=== PATIENT | female | born 1965 | race Two or more races ===

== ENCOUNTER 2018-02-14 11:02 | Outpatient (CLI) | payer OTHER | END 2018-02-14 11:18 | disposition home or self-care (01) | LOC: RAD 501 11:02 | DX: I10 Essential (primary) hypertension (principal); E11.9 Type 2 diabetes mellitus without complications; M54.5 Low back pain; M54.2 Cervicalgia ==

== ENCOUNTER 2023-05-09 18:29 | Emergency (ER) | payer OTHER ==
[~2023-05-09] VITALS: Ht 154.9 cm; Wt 66.7 kg
[2023-05-09] MEDS ORDERED: TRULICITY0.75 MG/0. SUBCUTANEO (18:52)
[2023-05-09] MEDS ORDERED: JARDIANCE10 MG PO (18:53)
[2023-05-09] MEDS ORDERED: COZAAR50 MG PO (18:53)
[2023-05-09] MEDS ORDERED: VASOTEC2.5 MG PO (18:53)
[2023-05-09] MEDS ORDERED: AMBIEN10 MG PO (18:54)
[2023-05-09] MEDS ORDERED: SIMVASTATIN5 MG PO (18:54)
[2023-05-09] MEDS ORDERED: KAPSPARGO SPRIN25 MG PO (18:54)
[2023-05-09] MEDS ORDERED: MECLIZINE HCL 25 MG TABLET PO STA (19:43)
[2023-05-09] MEDS ORDERED: NEOMYCIN/POLYMYXIN B/HYDROCORT 20 DR/ML BOTTLE OT STA (19:43)
== END 2023-05-09 19:58 | disposition home or self-care (01) ==
LOC: ER 18:29
DX: H81.11 Benign paroxysmal vertigo, right ear (principal); Z88.8 Allergy status to other drugs, medicaments and biological substances

== ENCOUNTER 2023-06-15 21:25 | Emergency (ER) | payer OTHER ==
[~2023-06-15] VITALS: Ht 154.9 cm; Wt 68.0 kg
[~2023-06-15 21:25] MED LIST: AMBIEN10 MG PO; COZAAR50 MG PO; JARDIANCE10 MG PO; KAPSPARGO SPRIN25 MG PO; SIMVASTATIN5 MG PO; TRULICITY0.75 MG/0. SUBCUTANEO; VASOTEC2.5 MG PO
[2023-06-15] MEDS ORDERED: KETOROLAC TROMETHAMINE 30 MG VIAL IV ONE (22:15)
[2023-06-15] MEDS ORDERED: FAMOTIDINE/PF 20 MG/2 ML VIAL IV PUSH ONE (22:15)
[2023-06-15] MEDS ORDERED: ONDANSETRON HCL 2 MG/ML VIAL IV ONE (22:15)
[2023-06-15] MEDS ORDERED: 0.9 % SODIUM CHLORIDE 1,000 ML IV SCH (22:30)
[2023-06-15 22:55] LABS: URINE BILIRRUBIN Negative (NEGATIVE); URINE BLOOD Negative; URINE COLOR Yellow; URINE LEUKOCYTE Small; URINE NITRATE Negative; URINE PROTEIN Trace (NEGATIVE)
[2023-06-15 23:14] LABS: HEMATOCRIT 36.1 % (36.0-45.00); HEMOGLOBIN 12.5 g/dL (12.0-15.00); MEAN CELL VOLUME 90.6 fL (80.00-100.00); MEAN CORPUSCULAR HEMOGLOBIN 31.3 pg (27.00-32.0); MEAN CORPUSCULAR HGB CONC 34.5 g/dl (32.0-36.0); PLATELET COUNT 197 K/uL (150-450); RED BLOOD COUNT 3.98 M/uL (4.00-6.00); RED CELL DISTRIBUTION WIDTH 13.6 % (11.5-14.5)
[2023-06-15 23:29] LABS: ALBUMIN 3.5 gm/dL (3.4-5.0); BILIRUBIN TOTAL 0.75 mg/dL (0.3-1.2); CALCIUM 8.8 mg/dL (8.5-10.1); CREATININE SERUM 0.95 mg/dL (0.55-1.02); GFR 60.21; GLOBULINA 4.2 G/DL (2.4-3.5); POTASSIUM 3.85 mEq/L (3.5-5.1); TOTAL PROTEIN 7.7 gm/dL (6.4-8.2)
[2023-06-15 23:43] LABS: URINE BACTERIA 7774.1 uL (0.0-1933); URINE EPITHELIAL CELLS 40.8 uL (0.0-38.8); URINE RBC 10.2 uL (0.0-20.8); URINE WBC 643.7 uL (0.0-23.2)
[2023-06-15 23:56] LABS: URINE APPEARANCE SL CLOUDY; URINE GLUCOSE >=1000 MG/DL (NEGATIVE)
[2023-06-15 23:59] LABS: URINE MUCUS SCANT
[2023-06-16] MEDS ORDERED: INTESTINEX680 M1 PO (02:42)
[2023-06-16] MEDS ORDERED: ONDANSETRON ODT4 MG PO (02:42)
[2023-06-16] MEDS ORDERED: LEVSIN/SL0.125 MG SL (02:42)
[2023-06-16] MEDS ORDERED: PEPCID40 MG PO (02:42)
== END 2023-06-16 02:53 ==
LOC: ER 21:25
PROVIDERS: General Practice
DX: K52.89 Other specified noninfective gastroenteritis and colitis (principal)

== ENCOUNTER 2023-10-25 16:18 | Emergency (ER) | payer OTHER ==
[~2023-10-25] VITALS: Ht 154.9 cm; Wt 62.1 kg
[~2023-10-25 16:18] MED LIST changes: +INTESTINEX680 M1 PO; +LEVSIN/SL0.125 MG SL; +ONDANSETRON ODT4 MG PO; +PEPCID40 MG PO
[2023-10-25] MEDS ORDERED: LANTUS SOL100 UNIT/1 SUBCUTANEO (16:27)
[2023-10-25] MEDS ORDERED: TRULICITY3 MG/0.5 M SQ (16:28)
[2023-10-25] MEDS ORDERED: KETOROLAC TROMETHAMINE 30 MG VIAL IM STA (18:49)
[2023-10-25] MEDS ORDERED: CEFTRIAXONE SODIUM 1,000 MG VIAL IM STA (18:50)
[2023-10-25] MEDS ORDERED: ORPHENADRINE CITRATE 30 MG/ML AMPUL IM STA (18:50)
[2023-10-25] MEDS ORDERED: KETOROLAC TROMETHAMINE 30 MG VIAL ONE (18:57)
[2023-10-25] MEDS ORDERED: CEFTRIAXONE SODIUM 1,000 MG VIAL ONE (18:58)
[2023-10-25] MEDS ORDERED: ORPHENADRINE CITRATE 30 MG/ML AMPUL ONE (18:58)
[2023-10-25] MEDS ORDERED: CYCLOBENZAPRINE10 MG PO (19:00)
[2023-10-25] MEDS ORDERED: AMOXICILLIN500 M1 PO (19:00)
[2023-10-25] MEDS ORDERED: DICLOFENAC POTA50 MG PO (19:00)
== END 2023-10-25 19:07 | disposition home or self-care (01) ==
LOC: ER 16:19
DX: M54.50 Low back pain, unspecified (principal); K08.89 Other specified disorders of teeth and supporting structures; I10 Essential (primary) hypertension; E11.9 Type 2 diabetes mellitus without complications; Z79.4 Long term (current) use of insulin

== ENCOUNTER 2023-11-28 15:09 | Emergency (ER) | payer OTHER ==
[~2023-11-28] VITALS: Ht 154.9 cm; Wt 64.0 kg
[~2023-11-28 15:09] MED LIST changes: +AMOXICILLIN500 M1 PO; +CYCLOBENZAPRINE10 MG PO; +DICLOFENAC POTA50 MG PO; +LANTUS SOL100 UNIT/1 SUBCUTANEO; +TRULICITY3 MG/0.5 M SQ
[2023-11-28] MEDS ORDERED: KETOROLAC TROMETHAMINE 30 MG VIAL IM STA (16:57)
[2023-11-28] MEDS ORDERED: KETOROLAC TROMETHAMINE 30 MG VIAL ONE (17:05)
[2023-11-28] MEDS ORDERED: ORPHENADRINE CITRATE 30 MG/ML AMPUL IV STA (18:22)
[2023-11-28] MEDS ORDERED: ORPHENADRINE CITRATE 30 MG/ML AMPUL IM STA (18:57)
[2023-11-28] MEDS ORDERED: ORPHENADRINE CITRATE 30 MG/ML AMPUL ONE (18:58)
== END 2023-11-28 19:14 | disposition home or self-care (01) ==
LOC: ER 15:10
DX: I10 Essential (primary) hypertension (principal); K08.89 Other specified disorders of teeth and supporting structures; R51.9 Headache, unspecified; Z88.8 Allergy status to other drugs, medicaments and biological substances

== ENCOUNTER 2024-03-12 11:15 | Emergency (ER) | payer OTHER ==
[~2024-03-12] VITALS: Ht 154.9 cm; Wt 64.4 kg
[2024-03-12] MEDS ORDERED: SIMVASTATIN80 MG (12:50)
[2024-03-12] MEDS ORDERED: CRESTOR40 MG PO (12:50)
[2024-03-12] MEDS ORDERED: GLIMEPIRIDE2 MG (12:50)
[2024-03-12] MEDS ORDERED: LIPOFEN50 MG (12:51)
[2024-03-12] MEDS ORDERED: KETOROLAC TROMETHAMINE 30 MG VIAL IM STA (13:43)
[2024-03-12 14:20] LABS: HEMATOCRIT 37.4 % (36.0-45.00); HEMOGLOBIN 12.7 g/dL (12.0-15.00); MEAN CELL VOLUME 91.9 fL (80.00-100.00); MEAN CORPUSCULAR HEMOGLOBIN 31.1 pg (27.00-32.0); MEAN CORPUSCULAR HGB CONC 33.9 g/dl (32.0-36.0); PLATELET COUNT 187 K/uL (150-450); RED BLOOD COUNT 4.07 M/uL (4.00-6.00)
[2024-03-12 14:51] LABS: C-REACTIVE PROTEIN 0.62 MG/DL (0.00-0.29)
[2024-03-12] MEDS ORDERED: MEDROLPACK PO (15:18)
[2024-03-12] MEDS ORDERED: METHYLPREDNISOLONE SOD SUCC 40 MG VIAL IM ONE (15:30)
[2024-03-12] MEDS ORDERED: ORPHENADRINE CITRATE 30 MG/ML AMPUL IM ONE (15:30)
== END 2024-03-12 15:48 | disposition home or self-care (01) ==
LOC: ER 11:17
PROVIDERS: Emergency Medicine
DX: M19.90 Unspecified osteoarthritis, unspecified site (principal); Z88.9 Allergy status to unspecified drugs, medicaments and biological substances

== ENCOUNTER 2024-06-18 16:32 | Emergency (ER) | payer OTHER ==
[~2024-06-18] VITALS: Ht 154.9 cm; Wt 68.0 kg
[~2024-06-18 16:32] MED LIST changes: +CRESTOR40 MG PO; +GLIMEPIRIDE2 MG; +LIPOFEN50 MG; +MEDROLPACK PO; +SIMVASTATIN80 MG
[2024-06-18] MEDS ORDERED: INSULIN REGULAR, HUMAN 1,000 UNIT/10 ML UNITS IV ONE (18:15)
[2024-06-18] MEDS ORDERED: ORPHENADRINE CITRATE 30 MG/ML AMPUL IM ONE (18:15)
[2024-06-18] MEDS ORDERED: KETOROLAC TROMETHAMINE 30 MG VIAL IV ONE (18:15)
[2024-06-18] MEDS ORDERED: ORPHENADRINE CITRATE 30 MG/ML AMPUL ONE (18:18)
[2024-06-18] MEDS ORDERED: KETOROLAC TROMETHAMINE 30 MG VIAL ONE (18:18)
[2024-06-18] MEDS ORDERED: INSULIN REGULAR, HUMAN 1,000 UNIT/10 ML UNITS SUBCUTANEO ONE (20:00)
[2024-06-18] MEDS ORDERED: NORFLEX100MG PO (20:04)
== END 2024-06-18 20:11 | disposition home or self-care (01) ==
LOC: ER 16:34
DX: S29.8XXA Other specified injuries of thorax, initial encounter (principal); W18.39XA Other fall on same level, initial encounter; Y93.89 Activity, other specified; Y92.018 Other place in single-family (private) house as the place of occurrence of the external cause; E11.65 Type 2 diabetes mellitus with hyperglycemia; Z79.4 Long term (current) use of insulin; Z91.013 Allergy to seafood; J45.909 Unspecified asthma, uncomplicated; I10 Essential (primary) hypertension; I25.10 Atherosclerotic heart disease of native coronary artery without angina pectoris; S60.222A Contusion of left hand, initial encounter; M85.88 Other specified disorders of bone density and structure, other site
CPT/HCPCS: 72070; 72100; 73130; 96365; 96372; 99283; J1815; J1885; J2360

== ENCOUNTER 2024-07-18 13:34 | Emergency (ER) | payer OTHER ==
[~2024-07-18] VITALS: Ht 154.9 cm; Wt 68.0 kg
[~2024-07-18 13:34] MED LIST changes: +NORFLEX100MG PO
[2024-07-18 13:48] VITALS: BP 151/81; O2SAT 100
[2024-07-18] MEDS ORDERED: FAMOTIDINE/PF 20 MG in 0.9 % SODIUM CHLORIDE 8 ML IV PUSH STA (16:07)
[2024-07-18] MEDS ORDERED: ONDANSETRON HCL 2 MG/ML VIAL ONE (16:08)
[2024-07-18] MEDS ORDERED: FAMOTIDINE/PF 20 MG/2 ML VIAL ONE (16:09)
[2024-07-18] MEDS ORDERED: ONDANSETRON HCL 2 MG/ML VIAL IV ONE (16:15)
[2024-07-18 16:37] LABS: HEMATOCRIT 38.6 % (36.0-45.00); HEMOGLOBIN 13.1 g/dL (12.0-15.00); MEAN CELL VOLUME 90.7 fL (80.00-100.00); MEAN CORPUSCULAR HEMOGLOBIN 30.9 pg (27.00-32.0); MEAN CORPUSCULAR HGB CONC 34.1 g/dl (32.0-36.0); PLATELET COUNT 193 K/uL (150-450); RED BLOOD COUNT 4.25 M/uL (4.00-6.00); RED CELL DISTRIBUTION WIDTH 13.4 % (11.5-14.5)
[2024-07-18] MEDS ORDERED: LIDOCAINE HCL 1% 10ML VIAL ONE (16:48)
[2024-07-18 17:10] LABS: ALBUMIN 3.7 gm/dL (3.4-5.0); BILIRUBIN TOTAL 0.69 mg/dL (0.3-1.2); CALCIUM 9.5 mg/dL (8.5-10.1); CREATININE SERUM 0.93 mg/dL (0.55-1.02); GFR 61.49; GLOBULINA 4.6 G/DL (2.4-3.5); POTASSIUM 3.59 mEq/L (3.5-5.1); TOTAL PROTEIN 8.3 gm/dL (6.4-8.2)
[2024-07-18] MEDS ORDERED: LIDOCAINE HCL 1% 10ML VIAL PERCUT ONE (17:15)
[2024-07-18] MEDS ORDERED: PEPCID AC20 MG PO (17:46)
[2024-07-18] MEDS ORDERED: DUI500 PO (17:46)
[2024-07-18] MEDS ORDERED: CARAFATE1 GM PO (17:46)
== END 2024-07-18 18:01 | disposition home or self-care (01) ==
LOC: ER 13:34
PROVIDERS: General Practice
DX: S61.210A Laceration without foreign body of right index finger without damage to nail, initial encounter (principal); X58.XXXA Exposure to other specified factors, initial encounter; Y93.89 Activity, other specified; Y92.89 Other specified places as the place of occurrence of the external cause; Y99.9 Unspecified external cause status; R53.81 Other malaise; E11.9 Type 2 diabetes mellitus without complications; Z79.84 Long term (current) use of oral hypoglycemic drugs; I10 Essential (primary) hypertension; Z88.8 Allergy status to other drugs, medicaments and biological substances; Z91.013 Allergy to seafood

== ENCOUNTER 2024-08-07 13:57 | Emergency (ER) | payer OTHER ==
[~2024-08-07] VITALS: Ht 154.9 cm; Wt 68.0 kg
[~2024-08-07 13:57] MED LIST changes: +CARAFATE1 GM PO; +DUI500 PO; +PEPCID AC20 MG PO
[2024-08-07] MEDS ORDERED: INSULIN REGULAR, HUMAN 1,000 UNIT/10 ML UNITS IV ONE (16:30)
[2024-08-07] MEDS ORDERED: 0.9 % SODIUM CHLORIDE 1,000 ML IV SCH (16:30)
[2024-08-07 16:45] LABS: BASO % 0.7 % (0.1-1.2); EOS % 1.3 % (0.7-7.0); HEMATOCRIT 39.6 % (34.1-44.9); HEMOGLOBIN 13.5 g/dL (11.2-15.7); LYMPH # 2.03 (1.18-3.74); LYMPH % 26.9 % (19.3-53.1); MEAN CORPUSCULAR HEMOGLOBIN 30.2 pg (25.6-32.2); MONO # 0.39 (0.24-0.82); MONO % 5.2 % (4.7-12.5); NEUT # 4.97 (1.56-6.13); NEUT % 65.6 % (34.0-71.1); PLATELET COUNT 220 K/uL (163-369); RED BLOOD COUNT 4.47 M/uL (3.93-5.22)
[2024-08-07 17:09] LABS: ALBUMIN 3.7 gm/dL (3.4-5.0); BILIRUBIN TOTAL 0.89 mg/dL (0.3-1.2); CALCIUM 9.9 mg/dL (8.5-10.1); GFR 56.55; GLOBULINA 4.5 G/DL (2.4-3.5); POTASSIUM 3.84 mEq/L (3.5-5.1); TOTAL PROTEIN 8.2 gm/dL (6.4-8.2)
[2024-08-07] MEDS ORDERED: CEFTRIAXONE SODIUM 1,000 MG VIAL IV ONE (17:15)
[2024-08-07] MEDS ORDERED: CEFTRIAXONE SODIUM 1,000 MG VIAL ONE (17:19)
[2024-08-07 17:46] LABS: PH,URINE 5.5 (5.0-8.0); URINE APPEARANCE Clear; URINE BILIRRUBIN Negative (NEGATIVE); URINE BLOOD Negative; URINE COLOR Yellow; URINE KETONE Negative (NEGATIVE); URINE LEUKOCYTE Negative; URINE NITRATE Negative; URINE PROTEIN Negative (NEGATIVE); URINE UROBILINOGEN 0.2 E.U./dl
[2024-08-07 17:51] LABS: URINE BACTERIA 4229.5 uL (0.0-1933); URINE EPITHELIAL CELLS 20.7 uL (0.0-38.8); URINE WBC 57.6 uL (0.0-23.2)
[2024-08-07] MEDS ORDERED: CEFUROXIME500 MG PO (17:55)
[2024-08-07] MEDS ORDERED: PEPCID AC20 MG PO (17:55)
[2024-08-07 18:09] LABS: URINE CAST 0.44 uL (0.0-1.40); URINE GLUCOSE >=1000 MG/DL (NEGATIVE)
== END 2024-08-07 18:17 | disposition home or self-care (01) ==
LOC: ER 14:03
PROVIDERS: General Practice
DX: Z48.02 Encounter for removal of sutures (principal); E11.65 Type 2 diabetes mellitus with hyperglycemia; Z79.4 Long term (current) use of insulin; Z79.84 Long term (current) use of oral hypoglycemic drugs; I10 Essential (primary) hypertension; Z88.8 Allergy status to other drugs, medicaments and biological substances; Z91.013 Allergy to seafood